=== PATIENT | male | born 1970 | race Caucasian/White ===

== ENCOUNTER 2019-08-11 12:26 | Observation (INO) | payer OTHER, SELFPAY ==
[2019-08-11] VITALS (9 sets, daily range): BP systolic 144–200; BP diastolic 87–136; PULSE 56–80; RESP 14–20; TEMP 36.5–36.7; O2SAT 96–100; BMI 30.1
--- NOTE | ~2019-08-11 | CT_ITS ---
EXAMINATION: CTA brain carotid EXAM DATE: 08/11/2019 14:32 INDICATION: Left hemiparesis. TECHNIQUE: No prior Spiral CTA of the carotid arteries was performed with intravenous injection 100 cc of Omnipaque 350. Axial, coronal, sagittal reformatted images reviewed. Additional reformatted im ages created on dedicated 3-D workstation. NASCET comparable standard used to assess the degree of a rterial stenosis. Spiral CT angiogram cerebral arteries performed with the same intravenous injectio n of contrast. Source images of the brain CTA transferred to dedicated workstation for 3-D rotational image creation. Coronal, sagittal maximum intensity pixel images also reviewed. The dose-length pr oduct (DLP) for this examination was 1692.78 mGy-cm. The exposure was tailored according to patient size, and iterative reconstruction (ASIR) was used as additional dose reduction technique. There i s no prior study for comparison. FINDINGS: Mild bilateral carotid bulb and internal carotid artery plaque with 0% stenosis bilaterally . The vertebral arteries are codominant. Mild intracranial atherosclerosis. There is no carotid or ve rtebral basilar arterial dissection or fibromuscular dysplasia. There are no cerebral artery aneurysm s. There is symmetric cerebral artery arborization. The sagittal, transverse and sigmoid sinuses enha nce normally, no venous sinus thrombosis. Internal cerebral veins also enhance normally. There is mild to moderate white matter hypodensity, nonspecific but could be early microangiopathy gi jefe the punctate bilateral internal capsular, left caudate head lacunar infarctions. There is no acut e intraparenchymal hemorrhage. No evidence of intraparenchymal brain mass lesion. There is a 4 mm hy podensity in the right side of the tony, age indeterminate lacunar infarction. There is no mass effec t or midline shift. There is no obstructive hydrocephalus suspected. There are no extra-axial collec tions. There are no calvarial acute fractures. There is a 3 cm right thyroid lobe nodule, consider follow-up nonemergent ultrasound for risk stratification. IMPRESSION: 1. Mild scattered atherosclerosis, 0% carotid stenosis bilaterally. 2. Small right tony hypodensity, age indeterminate infarction. 3. Nonspecific white matter hypodensity, most likely microangiopathy given the chronic appearing lac unar infarctions. Reviewed, dictated and finalized at location A. IMPRESSION: 1. Mild scattered atherosclerosis, 0% carotid stenosis bilaterally. 2. Small right tony hypodensity, age indeterminate infarction. 3. Nonspecific white matter hypodensity, most likely microangiopathy given the chronic appearing lacunar infarctions.
--- NOTE | ~2019-08-11 | MR_ITS ---
EXAMINATION: MR brain/brain stem wo con DATE: 08/12/2019 11:54 INDICATION: Left hemiparesis. TECHNIQUE: Magnetic resonance imaging (MRI) of the brain and brainstem was performed without intraven ous contrast. Sequences included sagittal and axial T1-weighted FSE, axial diffusion-weighted FS EPI, axial T2*-weighted GRE, axial T2-weighted FLAIR Propeller, and axial T2-weighted Propeller. Apparent diffusion coefficient (ADC) maps were created. COMPARISON: Head CTA 08/11/2019 FINDINGS: There is an acute infarct in the posterior limb right internal capsule. There is an acute i nfarct in the left thalamus. There are old infarcts in the tony and left basal ganglia. There are sca ttered areas of nonspecific increased T2-weighted signal intensity in the cerebral white matter. Ther e are small areas of cystic encephalomalacia in the deep white matter of the frontal lobes and left p arietal lobe. There are old blood products in the left basal ganglia and right frontoparietal region. There is no acute intracranial hemorrhage or abnormal mass lesion. The ventricles are normal in size . There is mild mucosal thickening in the paranasal sinuses. The orbits are normal. There are small b ilateral mastoid effusions. IMPRESSION: 1. Acute infarcts involving the posterior limb right internal capsule and left thalamus. 2. Old infarcts involving the tony, left basal ganglia, and deep white matter of the frontal lobes an d left parietal lobe. 3. Moderate nonspecific cerebral white matter disease, which likely represents chronic small vessel i schemic disease. Reviewed, dictated and finalized at location A. IMPRESSION: 1. Acute infarcts involving the posterior limb right internal capsule and left thalamus. 2. Old infarcts involving the tony, left basal ganglia, and deep white matter o f the frontal lobes and left parietal lobe. 3. Moderate nonspecific cerebral white matter disease, which likely represents chronic small vessel ischemic disease.
--- NOTE | 2019-08-11 13:11 | ECG_ITS ---
Measurements Intervals [place] Rate: 65 P: 28 ME: 156 QRS: 14 QRSD: 106 T: 114 QT: 419 QTc: 437 Interpretive Statements SINUS RHYTHM DELAYED PRECORDIAL R/S TRANSITION LEFT VENTRICULAR HYPERTROPHY AND ST-T CHANGE BORDERLINE ST-T WAVE ABNORMALITY- LATERAL LEADS BORDERLINE ECG Electronically Signed On 08-11-2019 13:14:31 CDT by Khai Marinelli D.O.
--- NOTE | 2019-08-11 13:34 | ED.NEUROSD ---
HPI - Neuro Symptoms/Deficit General Chief Complaint: Neuro Symptoms/Deficit Stated Complaint: I might have had a stroke 2 days ago. Time Seen by Provider: 08/11/19 13:02 Source: patient Mode of arrival: ambulatory Limitations: no limitations History of Present Illness HPI Narrative: The pt is a 48 y/o male who presents to the ED c/o severe left-sided weakness onset 2 days ago. Pt states that he experienced left hand and LLE weakness, but this has been improving. He notes that he also has seemed uncoordinated in both the hand and LLE. He notes that he has not had difficulty walking. Pt states that sleeping seems to help his condition. Pt reports some mid-back pain, but denies abnormal speech, KELLER, CP, N/V/D, fever, chills, LLE pain and left hand pain. He notes that he quit drinking alcohol 2 weeks ago, and is a recovering alcoholic. He states that he has been taking 5 medications for HTN. Onset (ago): day(s) (2) Location: left arm (Hand) and left leg Severity: severe Quality: weak Relieving factors: other (Sleep) Context: other (Recovering alcoholic) Associated symptoms: other (Left hand and LLE incoordination, mid back pain) Related Data Home Medications Medication Instructions Recorded Confirmed aspirin 81 mg PO DAILY 08/11/19 atorvastatin 20 mg PO HS 08/11/19 cholecalciferol (vitamin D3) 25 mcg PO DAILY 08/11/19 [Vitamin D3] lisinopril 40 mg PO DAILY 08/11/19 metoprolol tartrate 50 mg PO Q12H 08/11/19 Allergies Allergy/AdvReac Type Severity Reaction Status Date / Time No Known Allergies Allergy Verified 08/11/19 12:51 Review of Systems Review of Systems: Narrative: Review of Systems Constitutional: Negative for fever and chills. Cardiovascular: Negative for chest pain. Gastrointestinal: Negative for nausea, vomiting, and diarrhea. Musculoskeletal: Positive for mid-back pain. Negative for LLE pain and left hand pain. Neurological: Positive for severe LLE/left hand weakness and LLE/left hand incoordination. Negative for abnormal speech and headache. All systems reviewed & are unremarkable except as noted in HPI and below PMFSH Past Medical History Medical History (Updated 08/11/19 @ 16:35 by Daniella Grant MD) HLD (hyperlipidemia) HTN (hypertension) Kidney stone Myocardial infarction Nasal fracture Vitamin D deficiency Surgical History Surgical History (Updated 08/11/19 @ 14:01 by Feliberto Barnes) Surgical history unknown Social History Social History (Updated 08/11/19 @ 14:01 by Feliberto Barnes) Smoking status: Former smoker Alcohol intake: former Alcohol use details: Recovering alcoholic. Exam Narrative: Exam Narrative: Constitutional: Appears well-developed. No distress. HENT: Head: Normocephalic. Nose: Nose normal. Mouth/Throat: Oropharynx is clear and moist. Eyes: Conjunctiva are normal. Neck: Normal range of motion. Neck supple. Cardiovascular: Normal rate and regular rhythm. Pulmonary/Chest: Effort normal and breath sounds normal. Abdominal: Soft. There is no tenderness. Musculoskeletal: Normal range of motion. No edema. Neurological: Alert and oriented to person, place, and time. Skin: Skin is warm. No pallor. Psychiatric: Normal mood and affect. Neuro: General: oriented to person, oriented to place, oriented to time and patient oriented x3 Cranial nerves: Yes CN's II-XII intact bilaterally Cognition (Neuro): normal cognition Speech: normal speech Motor exam (neuro): 5/5 motor strength present throughout Sensory Exam: normal sensation Coordination: No [id number] test normal (Abnormal in the left hand) and [id number] test normal Course Consultations Consultation #1: Discussed case with Maria E Head PA-C, who will admit to Dr. De Leon. Date: 08/11/19 Time: 15:22 Vital Signs Vital signs: Vital Signs Temperature 36.5 C 08/11/19 12:34 Pulse Rate 67 08/11/19 12:34 Respiratory Rate 14 08/11/19 12:34 Blood Pressure 189/13
[2019-08-11 13:40] LABS: Basophils Percent Auto 0.3 % (0.2-1.2); Eosinophils Absolute Auto 0.2 K/mm3 (0-0.3); Eosinophils Percent Auto 1.5 % (0-4.4); Hematocrit 44.8 % (42.0-52.0); Hemoglobin 15.1 g/dL (14.0-18.0); Immature Granulocyte Absolute 0.02 K/mm3 (0.00-0.031); Immature Granulocyte Percent A 0.2 % (0-0.5); Lymphocytes Absolute Auto 1.58 K/mm3 (0.9-3.2); Lymphocytes Percent Auto 14.5 % (18.3-44.2); Mean Corpuscular HGB Conc 33.7 g/dl (32-36); Mean Corpuscular Hemoglobin 30.2 pg (26-34); Mean Corpuscular Volume 89.6 fl (80-100); Mean Platelet Volume 11.3 fl (7.4-10.4); Monocytes Absolute Auto 0.5 K/mm3 (0.1-0.6); Monocytes Percent Auto 4.5 % (2.6-8.5); Neutrophils Absolute Auto 8.6 K/mm3 (1.3-6.7); Platelet Count Result 202 k/mm3 (150-375); White Blood Count 10.9 K/mm3 (4.5-10.0)
[2019-08-11 13:49] LABS: INR 0.9
[2019-08-11 13:50] LABS: Partial Thromboplastin Time 29.3 SECONDS (22.3-36.8)
[2019-08-11 13:53] LABS: Blood Urea Nitrogen 18 mg/dL (9-20); Carbon Dioxide 25 mmol/L (22-30); Chloride 105 mmol/L (98-107); Estimated CRCL calculation 70 ml/min; Estimated Glomerular Filt Rate 59; Glucose 89 mg/dL (75-110); Potassium 4.1 mmol/L (3.4-5.0); Sodium 136 mmol/L (137-145)
[2019-08-11 15:01] LABS: Add Urine Microscopic? YES; Appearance Urine Clear (Clear); Bilirubin Urine Negative (Negative); Blood Urine Negative (Negative); Color Urine Yellow (Yellow); Glucose Urine UA Negative (Negative); Ketones Urine Negative (Negative); Leukocyte Esterase Ur Negative LEU/UL (Negative); Mucus Urine Rare /lpf; Nitrate Urine Negative (Negative); Protein Urine 3+ mg/dL (Negative); Urobilinogen Urine Negative mg/dL (<2.0); WBC Urine 0-3 /hpf
[2019-08-11 15:03] LABS: Specific Grav Ur 1.034 (1.001-1.035)
[2019-08-11] MEDS: AMLODIPINE BESYLATE 5 MG TABLET 10 MG PO (16:40)
--- NOTE | 2019-08-11 16:50 | PC.NURSE ---
This patient, Jason Bradford, was admitted to 3 [facility] Room 326-01. Patient/family oriented to hospital policies and general routines including ID bracelet, bed and alarms, visiting hours, pain management, procedures, bathroom and other care routines, personal items, smoking policy, room service/diet, and visiting hours. Valuables list has been completed. Information on how to activate the Rapid Response Team has been discussed. Patient/Family are encouraged to report perceived risks to care and to ask questions if they do not understand what they are told or what they should do.
[2019-08-11] MEDS: hydrALAZINE HCL 20 MG/ML VIAL 10 MG IV PUSH (18:20)
--- NOTE | 2019-08-11 22:00 | PM.IMHP ---
H&P: HPI History of Present Illness Chief complaint: Left sided weakness Narrative: Jason Bradford is a 48-year-old male with uncontrolled hypertension, coronary artery disease with history of inferior NC in 2015, and history of alcohol and tobacco abuse who presented to the emergency department earlier this afternoon from home for evaluation of left-sided weakness. On Wednesday morning he awoke in his usual state of health, and while making breakfast suddenly developed weakness in his left arm and leg. His gait seemed to be a little uncoordinated, and he notes that he seemed to limp a bit on his left leg however that resolved quite quickly. Unfortunately, he continues to have weakness in the left upper extremity, most notably from the elbow to the fingers. His mother thought perhaps he had a bit of a left-sided facial droop as well, but that was not evident to the patient. It is unclear why he did not come in for evaluation right away, but he tells me he thought he was getting better although symptoms never fully resolved. His blood pressure was as high as 200/122 in the emergency department, and with further questioning he mentions that he was diagnosed with hypertension many years ago but has only been compliant with medications off and on over the years. In fact, he and his family lived in [facility] for the last 2 years, and returned back to the [place] June 20, 2019. Upon returning, he was seen by physician at the [place] in [place] and at that time his systolic blood pressure was in the 220s. He was started back on antihypertensives, of which he states 100% compliance with since that time. He has been a pack-a-day smoker for 33 years, and has essentially quit since the beginning of this month although he will have a cigarette here and there. He also has a history of binge drinking, consuming roughly a 5th of vodka most weekends. He quit smoking July 31, 2019, and has been doing well in that regard. Additionally, he notes that frequently when he was binge drinking that he would have episodes of racing heart and fluttering, which never really lasted very long. He denies vertigo, auditory and visual changes, paresthesias, dysarthria, and dysphagia. Review of Systems Review of Systems: Narrative: Twelve systems were reviewed with pertinent positives and negatives as per HPI. No fever, chills, or sweats. He had cold symptoms upon returning from [facility] on June 20, 2019 which have resolved except he still has mild sinus congestion. He denies chest pain and shortness of breath. No myalgias or arthralgias. No exertional chest pain or shortness of breath. No nausea, vomiting, or diarrhea. He does mention having chronic back pain, mainly in the mid to lower thoracic spine. It seems to be worse with twisting and turning and at times position changes. 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 The pain is described as sharp and shooting, it does not seem to radiate. He does not recall ever injuring the area. Except as documented, all other systems were reviewed and are negative. [facility] Past Medical History Medical History (Updated 08/11/19 @ 23:24 by Maria E Head PA-C) Coronary artery disease History of acute inferior NC January 04, 2015, status post drug-eluting stent to the distal circumflex per Dr. Rome. Ejection fraction at that time was 70%. History of alcohol abuse History of kidney stones History of tobacco abuse Hyperlipidemia Hypertension Kidney stone Vitamin D deficiency Surgical History Surgical History (Updated 08/11/19 @ 23:17 by Maria E Head PA-C) History of heart artery stent Drug-eluting stent to distal circumflex in December 2014. Family History Family History Other Unknown family medical history Social History Social History (Updated 08/11/19 @ 23:20 by Maria E Head PA-C) Social H
[2019-08-11] MEDS: METOPROLOL TARTRATE 50 MG TAB PO (23:05)
[2019-08-11] MEDS: METOPROLOL TARTRATE 25 MG TABLET PO (23:05)
[2019-08-11] MEDS: ATORVASTATIN 20 MG TABLET PO (23:05)
[2019-08-12] VITALS (13 sets, daily range): BP systolic 142–176; BP diastolic 82–114; PULSE 56–77; RESP 18–22; TEMP 36.2–37.5; O2SAT 97–99
[2019-08-12 06:44] LABS: Cholesterol 199 mg/dL (0-200); HDL Direct 27 mg/dL; Triglycerides 193 mg/dL (<150)
[2019-08-12 06:45] LABS: Alanine Aminotransferase 15 U/L (4-50); Albumin Level 3.8 g/dL (3.5-5.1); Alkaline Phosphatase 78 U/L (38-126); Aspartate Amino Transferase 20 U/L (17-59); Bilirubin,Total 0.7 mg/dL (0.2-1.3); Blood Urea Nitrogen 19 mg/dL (9-20); Calcium 8.7 mg/dL (8.4-10.2); Carbon Dioxide 27 mmol/L (22-30); Chloride 102 mmol/L (98-107); Estimated CRCL calculation 70 ml/min; Estimated Glomerular Filt Rate 59; Glucose 86 mg/dL (75-110); Potassium 4.1 mmol/L (3.4-5.0); Sodium 136 mmol/L (137-145)
[2019-08-12 06:55] LABS: LDL Cholesterol Direct 142 mg/dL
[2019-08-12] MEDS: lisinopriL 20 MG TABLET 40 MG PO (08:46)
[2019-08-12] MEDS: CHOLECALCIFEROL 1,000 UNIT TABLET 1000 UNITS PO (08:46)
[2019-08-12] MEDS: ASPIRIN 81 MG ENTERIC TABLET PO (08:46)
[2019-08-12] MEDS: METOPROLOL TARTRATE 25 MG TABLET PO ×2 (08:46→20:12)
[2019-08-12] MEDS: METOPROLOL TARTRATE 50 MG TAB PO ×2 (08:47→20:12)
--- NOTE | 2019-08-12 14:00 | PM.IMPN ---
Progress Note: A&P Assessment and Plan (1) CVA (cerebral vascular accident): Code(s): I63.9 - Cerebral infarction, unspecified Status: Acute Assessment and Plan: ----- Brain CT shows small right tony hypodensity, age indeterminate but probably within the last couple of days. MRI is still pending. Patient states that he is taking aspirin daily. for this reason i will add plavix. His LDL is high so I will increase his atorvastatin. Echo reviewed and shows evidence of significant uncontrolled HTN. He will need close follow up with his pcp for bp control and will need a bp cuff at home. He will also want to get a holter monitor from his pcp after discharge to assess for afib. Neurology onboard. Plan to discharge 08/12 if blood pressure stays reasonably controlled. (2) Uncontrolled hypertension: Code(s): I10 - Essential (primary) hypertension Status: Acute Assessment and Plan: -----Last bp 154/105 but was as high as 220 systolic. Hydralazine ordered for significant HTN. continue home lisinopril and metoprolol. Echo shows changes consistent with long standing uncontrolled htn. Will need to follow closely with his pcp. (3) History of tobacco abuse: Code(s): Z87.891 - Personal history of nicotine dependence Status: Acute Assessment and Plan: -----pt states he has not had one in 1 week and does not plan to start up again. He understands how stopping smoking can help prevent another stroke. (4) History of alcohol abuse: Code(s): F10.11 - Alcohol abuse, in remission Status: Acute Assessment and Plan: ----- Last drink was July 31, 2019. discussed the importance of refraining from all alcohol. (5) Concentric left ventricular hypertrophy: Code(s): I51.7 - Cardiomegaly Status: Acute Assessment and Plan: -----Seen on echo. Likely d/t uncontrolled HTN. See above. Time Spent With Patient Time with patient: 25 - 35 minutes Subjective Date/time seen: 08/12/19 14:00 Interval history: Pt is a 48-year-old male here for new CVA. Patient was seen today and states that his left hand is still weak and is accuracy is not rate. He says that this is an improvement since the last few days where it was pretty weak and numb. He has not had any problems with speech or swallowing. We had a long talk about alcohol, smoking and high blood pressure. He understands that it is vital for him to stop smoking in order to prevent further strokes. He also mentions that he gets a muscular back pain every once a while which is chronic. He denies CP, fevers, chills, nausea, vomiting, diarrhea, or constipation. Review of Systems Review of Systems: All systems reviewed & are unremarkable except as noted in HPI and below Exam Narrative: Exam Narrative: General: Well developed well nourished patient resting in bed in NAD HEENT: normocephalic Neck: supple Neuro: Alert and oriented x4. CN 2-12 intact. LE strength 5/5. Left supervisor chlorine liquefaction strength weak and unable to do finger to nose with the left hand. Right WNL CV:RRR. tele reviewed with no abnormalities. Resp:CTA Abd: Soft, non distended. No pain to palpation. Positive bowel sounds Extremities: No swelling, erythema, or pain to palpation. Back: No pain to palpation to the thoracic or lumbar spine. Objective Data Vital Signs Vital Signs: Vital Signs - 24 hr 08/11/19 16:28 08/11/19 16:50 08/11/19 17:45 Temperature 97.9 F Pulse Rate 56 L 75 66 Pulse Rate [Monitor] Respiratory Rate 14 18 Blood Pressure 183/123 H 200/122 H Pulse Oximetry 100 98 08/11/19 18:11 08/11/19 19:23 08/11/19 19:45 Temperature 98.1 F Pulse Rate 75 Pulse Rate [Monitor] Respiratory Rate 20 Blood Pressure 191/118 H 194/115 H 144/87 H Pulse Oximetry 96 08/11/19 20:00 08/11/19 23:05 08/12/19 00:00 Temperature Pulse Rate 73 80 58 L Pulse Rate [Monitor] Respiratory Rate Blood Pressu
[2019-08-12] MEDS: CLOPIDOGREL BISULFATE 75 MG TABLET PO (15:04)
--- NOTE | 2019-08-12 16:44 | ECHO_ITS ---
Patient Info Name: Jsaon Bradford Age: 48 years : 1970 Gender: Male Ht: 73 in Wt: 228 lbs BSA: 2.33 m2 HR: 59 bpm BP: 113 / 67 mmHg Heart Rhythm: Sinus Rhythm Technical Quality: Good Exam Date: 08/12/2019 7:03 AM Exam Location: [facility] Pulmonary Patient Status: Outpatient Admit Date: 08/11/2019 Staff Ordering Physician: Maria E Head PA-C Researcher: Nathaly De La O RDCS Attending Provider: Susu Reed PA-C Referring Physician: Sonido GRULLON; Exam Type: CA echo dop color flow w con Study Info Complete two-dimensional, color flow and Doppler transthoracic echocardiogram is performed with contrast to opacify the left ventrical and to improve the deliniation of the left ventrical endocarial boarders. Contrast/Agitated Saline Amount: 2.00 ml Summary 1. Left ventricular systolic function is normal, estimated at 55-60%. 2. There is severe concentric increased left ventricular wall thickness. 3. The left ventricular diastolic function is grade I diastolic dysfunction. 4. There is mild aortic valve sclerosis. 5. There is mild aortic valve stenosis with a peak velocity of 225.59 cm/s, mean gradient of 7 mmHg, and aortic valve area of 2.23 cm2. 6. There is mild aortic valve regurgitation. 7. Left atrial chamber dimension is mildly enlarged. 8. Definity contrast injected to improve visualization. Left Ventricle Left ventricular chamber dimension is normal. Left ventricular systolic function is normal, estimated at 55-60%. There is severe concentric increased left ventricular wall thickness. The left ventricular diastolic function is grade I diastolic dysfunction. Definity contrast injected to improve visualization. Right Ventricle Right ventricular chamber dimension is normal. Left Atria Left atrial chamber dimension is mildly enlarged. Right Atria Right atrial chamber dimension is normal. Aortic Valve The aortic valve is trileaflet. There is mild aortic valve sclerosis. There is mild aortic valve stenosis with a peak velocity of 225.59 cm/s, mean gradient of 7 mmHg, and aortic valve area of 2.23 cm2. There is mild aortic valve regurgitation. Pulmonic Valve The pulmonic valve is not well visualized. Mitral Valve The mitral valve has normal leaflets and calcified annulus. Tricuspid Valve The tricuspid valve leaflets are normal. Pericardium/Pleural The pericardium appears normal. Aorta The aortic root size at the sinus of Valsalva is normal. Left Ventricular Outflow Tract Name Value Normal LVOT 2D LVOT Diameter 2.25 cm LVOT Doppler LVOT Peak Velocity 117.32 cm/s LVOT Peak Gradient 6 mmHg LVOT Mean Gradient 3 mmHg LVOT VTI 21.79 cm LVOT VTI/AV VTI Ratio 0.56 LVOT Stroke Volume 86.88 ml LVOT CO 5.06 l/min LVOT CI 2.17 L/min/m2 Pulmonic Valve
--- NOTE | 2019-08-12 16:46 | WPDNEURCNPN ---
Assessment and Plan Assessment and plan (1) Concentric left ventricular hypertrophy: Code(s): I51.7 - Cardiomegaly Status: Acute (2) History of alcohol abuse: Code(s): F10.11 - Alcohol abuse, in remission Status: Acute (3) History of tobacco abuse: Code(s): Z87.891 - Personal history of nicotine dependence Status: Acute (4) Uncontrolled hypertension: Code(s): I10 - Essential (primary) hypertension Status: Acute (5) CVA (cerebral vascular accident): Code(s): I63.9 - Cerebral infarction, unspecified Status: Acute (6) Left-sided weakness: Code(s): R53.1 - Weakness Status: Acute (7) Hypertension: Qualifiers: Hypertension type: unspecified Qualified Code(s): I10 - Essential (primary) hypertension Code(s): I10 - Essential (primary) hypertension Status: Acute Additional Plan patient most likely has brainstem stroke at the pontine level at least by the CT scan workup has been done and his cardiac rhythm is sinus on telemetry which I reviewed by myself the Plavix has been added along with the aspirin which he was taking before the management needs to be continued I have recommended him healthy lifestyle continue to not smoke or drink E tell the do the exercise follow-up with the primary care physician who can refer him to a neurologist in the [place] system he would also need to follow-up with the biomedical photographer for his previous stent he had several years ago however not follow-up with them questions were answered all option risk in the benefits were discussed the present management needs to be continued I suspect he can be discharged once the MRI results are available with the outpatient therapy and as for as the work and/or the driving is concerned he should refrain from it till he sees a primary care physician in the [facility] and or a neurologist in that system Consult date: 08/12/19 Time Seen: 16:30 HPI: Jason Bradford is a 48 year old male who is right-handed and is walking around in the hallway prior to this examiner examining him and bring him to his room he clearly does have a mild left hemiparesis drugs left leg and decreased left arm swing without any evidence of headache nausea vomiting chest pain shortness of breath and change in the mental status. Apparently couple of days prior to coming to the emergency room the patient developed left-sided symptoms clearly of the weakness and finally when he was not getting better he presented himself to the emergency room at the data has been obtained by the examiner by reviewing but fully done history and physical examination by the hospitalist. Patient denies having had any similar episodes in the past he is hypertensive and had stop drinking and smoking roughly little over a week ago and wonders whether not stopping this has caused him to have stroke which I politely told him is not the case and is highly incidental after over a week of stopping the nicotine and/or it tell alcohol. The patient's CT scan of the brain reveals possibility of the pontine stroke which most likely will be confirmed by the MRI report of which is not available in our system yet Patient denies any worsening of the symptoms in fact is feeling better and walking around without any difficulty although showing the left-sided hemiparesis Review of Systems Review of Systems: All systems reviewed & are unremarkable except as noted in HPI and below PMFSH Past Medical History Medical History Coronary artery disease History of acute inferior [place] January 04, 2015, status post drug-eluting stent to the distal circumflex per Dr. Rome. Ejection fraction at that time was 70%. History of alcohol abuse History of kidney stones History of tobacco abuse Hyperlipidemia Hypertension Kidney stone Vitamin D deficiency Surgical History Surgical History (Reviewed 08/12/19 @ 16:48 by Dylon Antunez
[2019-08-12] MEDS: hydrALAZINE HCL 20 MG/ML VIAL 10 MG IV PUSH (17:08)
[2019-08-12] MEDS: ATORVASTATIN 40 MG TABLET PO (20:13)
[2019-08-13] VITALS (8 sets, daily range): BP systolic 146–150; BP diastolic 90–91; PULSE 57–63; RESP 18; TEMP 36.8–37.1; O2SAT 97–100
[2019-08-13] MEDS: ASPIRIN 81 MG ENTERIC TABLET PO (08:28)
[2019-08-13] MEDS: METOPROLOL TARTRATE 25 MG TABLET PO (08:28)
[2019-08-13] MEDS: lisinopriL 20 MG TABLET 40 MG PO (08:28)
[2019-08-13] MEDS: CLOPIDOGREL BISULFATE 75 MG TABLET PO (08:29)
[2019-08-13] MEDS: METOPROLOL TARTRATE 50 MG TAB PO (08:29)
[2019-08-13] MEDS: CHOLECALCIFEROL 1,000 UNIT TABLET 1000 UNITS PO (08:29)
--- NOTE | 2019-08-13 16:31 | PM.DS ---
DS: Diagnosis Admitting Diagnosis Admitting Diagnosis: Cerebral infarction, unspecified Discharge Diagnosis (1) CVA (cerebral vascular accident): Code(s): I63.9 - Cerebral infarction, unspecified Status: Acute (2) Uncontrolled hypertension: Code(s): I10 - Essential (primary) hypertension Status: Acute (3) History of tobacco abuse: Code(s): Z87.891 - Personal history of nicotine dependence Status: Acute Assessment and Plan: -----pt states he has not had one in 1 week and does not plan to start up again. He understands how stopping smoking can help prevent another stroke. (4) History of alcohol abuse: Code(s): F10.11 - Alcohol abuse, in remission Status: Acute Assessment and Plan: ----- Last drink was July 31, 2019. discussed the importance of refraining from all alcohol. (5) Concentric left ventricular hypertrophy: Code(s): I51.7 - Cardiomegaly Status: Acute Assessment and Plan: -----Seen on echo. Likely d/t uncontrolled HTN. See above. DS: Summary Hospital Course Reason for hospitalization: Stroke Hospital Course: Patient is a 48-year-old male with a history of uncontrolled hyper tension who presented emergency room with left-sided weakness starting 2 days prior. He has no other symptoms such as problems with speech, walking or right-sided weakness. In the ER his temperature was 36.5 degree C, pulse 67, respiratory rate 14, blood pressure 189/136, pulse ox 100 on room air. White blood cell count 10.9, hemoglobin 15.1, hematocrit 44.8, platelets 202. BMP within normal limits. CT of the brain at the time in the ER showed mild scattered atherosclerosis with 0% stenosis carotid bilaterally, small right tony hypodensity age-indeterminate infarction, nonspecific white matter hypodensity most likely microangiopathy given chronic appearing lacunar infarcts. Patient was admitted to the hospitalist service and underwent an MRI which confirmed an acute strokeThe posterior limb of the right internal capsule and left thalamus. Echocardiogram showed severe left concentric hypertrophy consistent with untreated hypertension. systolic function Was within normal limits and he had grade 1 diastolic dysfunction. The patient was taking aspirin at the time of the stroke and Plavix was added. He had no atrial fibrillation noted on telemetry but AFib has not been ruled out. I spoke to the patient about needing a heart monitor and he says he has an appointment with the metaphysics teacher August 16 since he is [facility] he needs to go through those channels. The patient also says that he will start taking his blood pressure medications regularly and is not going to smoke or drink alcohol and understands the significant risk of smoking. His lipid panel was elevated and I spoke to him about a healthy diet and exercise and also adjusted his statin medication. The patient was educated about additional stroke symptoms that can occur and was told to come back to emergency room right away if he were to have any stroke symptoms or heart palpitations. Neurology saw the patient and agreed with the workup. I talked to the patient about how important it was to follow-up with his metaphysics teacher on the and he agrees to do so. I also urged him to get a blood pressure cuff and take his blood pressure daily at the same time before caffeine, smoking, and after sitting down for 5 minutes. I told him to take these values to his primary care physician and his metaphysics teacher to see if his blood pressure medications need to be adjusted. The patient was educated about the worrisome signs and symptoms to come back to emergency room for was discharged in stable condition. Time spent discussing smoking cessation with patient: more than 10 minutes Status at Discharge Functional status at discharge: independent ambulation Overall status at discharge: patient is back to baseline Time Sp
== END 2019-08-13 11:15 | disposition home or self-care (01) ==
LOC: ANHED 15:46 → ANH3MEDSUR 16:09
PROVIDERS: Physician Assistant; Admitting Provider Internal Medicine; Emergency Provider Emergency Medicine; Visit Provider Hospitalist
DX: I63.9 Cerebral infarction, unspecified (principal); G81.94 Hemiplegia, unspecified affecting left nondominant side; I10 Essential (primary) hypertension; I51.7 Cardiomegaly; F10.11 Alcohol abuse, in remission; E78.5 Hyperlipidemia, unspecified; I25.10 Atherosclerotic heart disease of native coronary artery without angina pectoris; I25.2 Old myocardial infarction; E55.9 Vitamin D deficiency, unspecified; Z79.82 Long term (current) use of aspirin; Z79.899 Other long term (current) drug therapy; Z87.442 Personal history of urinary calculi; Z87.891 Personal history of nicotine dependence; Z95.5 Presence of coronary angioplasty implant and graft
CPT/HCPCS: 36415; 70496; 70498; 70551; 80048; 80053; 80061; 81001; 85025; 85610; 85730; 93005; 96374; 97110; 97116; 97161; 97165; 99285; A9270; C8929; G0378; J0360; Q9957; Q9967